=== PATIENT | female | born 1970 | race African-American/Black ===

== ENCOUNTER 2020-09-05 21:32 | Emergency (ER) | payer OTHER ==
[~2020-09-05 21:32] MED LIST: ARIXTRA10 MG/0.8 SC; ATARAX25 MG PO; BENTYL10 MG PO; BROMFED DM COU473 ML PO; COMPAZINE10 MG PO; DIAZEPAM 5MG TAB5 MG PO; DILANTIN100 MG PO; DIPHENHYDRAMINE IV; EPIPEN0.3 MG/0.3 SC; FOLIC ACID1 MG PO; HYDROCODONE-APA1 TAB PO; IBUPROFEN800 MG PO; KEFLEX250 MG PO; KETOROLAC TROME10 MG PO; LEVAQUIN750 MG PO; LEVIMIR SC; LIPITOR 10MG TA10 MG PO; LOVENOX100 MG/1 M SQ; MEDROL 4MG DOSEP4 MG PO; METHOTREXATE2.5 MG PO; NORCO 5-325 TA1 EACH PO; PEPCID AC20 MG PO; PHENERGAN25 M1 PO; POTASSIUM IV; PREDNISONE 10MG10 MG PO; PREDNISONE 20MG20 MG PO; PREDNISONE5 MG PO; PROAIR HFA8.5 GM INH; PROMETHAZINE25 MG/ML IV; PROTONIX 40MG T40 MG PO; PULMICORT0.5 MG/2 M NEB; TESSALON PERLE100 MG PO; TIZANIDINE HCL4 MG PO; ZPAK PO; [UNRECOGNIZED DRUG - REMARK]
[2020-09-05 21:58] LABS: BASOPHIL 0.5 % (0-2); EOSINOPHIL 1.7 % (0-5); HCT 45.9 % (37.0-47.0); HGB 14.4 g/dl (12.5-16.0); LYMPHOCYTE 31.8 % (15-48); MCH 28.5 pg (25.0-31.0); MCHC 31.4 g/dL (32.0-36.0); MCV 90.7 fL (78.0-100.0); MONOCYTE 5.7 % (0-12); MPV 9.6 fL (6.0-9.5); NRBC 0; PLT 444 K/uL (150-400); RBC 5.06 M/uL (4.20-5.40); RDW 13.9 % (11.5-14.0)
[2020-09-05 22:03] LABS: WBC 17.7 K/uL (4.0-10.5)
[2020-09-05 22:15] LABS: ALBUMIN 3.7 g/dL (3.4-5.0); ALKALINE PHOSHATASE 111 U/L (46-116); ALT 14 U/L (14-59); AST 8 U/L (15-37); BILIRUBIN - TOTAL 0.1 mg/dL (0.2-1.0); BUN 5 mg/dL (7-18); BUN/CREAT RATIO (CALC) 7.1 RATIO; CHLORIDE 102 mmol/L (98-107); CO2 (BICARBONATE) 29 mmol/L (21-32); GLOBULIN (CALCULATION) 4.5 g/dL; GLUCOSE 114 mg/dL (74-106); LIPASE 104 U/L (73-393); POTASSIUM 3.1 mmol/L (3.5-5.1); TOTAL PROTEIN 8.2 g/dL (6.4-8.2)
[2020-09-05 22:18] LABS: DILANTIN (PHENYTOIN) < 1.0 ug/mL (10.0-20.0); INR 1.05 (0.9-1.2); PTT 30.4 SECONDS (22.2-34.7)
[2020-09-05 22:29] LABS: CKMB <0.5 ng/mL (0.0-3.6)
[2020-09-06] MEDS ORDERED: LOVENOX100 MG/1 M SC (10:13)
== END 2020-09-06 10:55 | disposition home or self-care (01) ==
LOC: FER 21:32
PROVIDERS: Emergency Medicine Emergency Medical Services
DX: I26.99 Other pulmonary embolism without acute cor pulmonale (principal); U07.1 COVID-19; R07.89 Other chest pain; E11.9 Type 2 diabetes mellitus without complications; I10 Essential (primary) hypertension; J44.9 Chronic obstructive pulmonary disease, unspecified; F17.200 Nicotine dependence, unspecified, uncomplicated; Z79.4 Long term (current) use of insulin; Z86.73 Personal history of transient ischemic attack (TIA), and cerebral infarction without residual deficits; Z88.5 Allergy status to narcotic agent; Z88.8 Allergy status to other drugs, medicaments and biological substances; Z88.1 Allergy status to other antibiotic agents; Z91.041 Radiographic dye allergy status
CPT/HCPCS: 36415; 71045; 71275; 80053; 80185; 82553; 83690; 83880; 84145; 84484; 85025; 85379; 85610; 85730; 93005; J1170; J1200; J2060; J2550; J2930; J3480; J7030; J7050; M0239; Q0239; Q9967; U0002

== ENCOUNTER 2020-09-20 10:20 | Emergency (ER) | payer OTHER ==
[~2020-09-20 10:20] MED LIST changes: +LOVENOX100 MG/1 M SC
[2020-09-20 13:10] LABS: BASOPHIL 0.6 % (0-2); EOSINOPHIL 1.8 % (0-5); HCT 45.5 % (37.0-47.0); HGB 14.4 g/dl (12.5-16.0); LYMPHOCYTE 24.6 % (15-48); MCH 28.5 pg (25.0-31.0); MCHC 31.6 g/dL (32.0-36.0); MCV 89.9 fL (78.0-100.0); MONOCYTE 4.6 % (0-12); MPV 9.6 fL (6.0-9.5); NEUTROPHIL 68.1 % (41-80); NRBC 0; PLT 373 K/uL (150-400); RBC 5.06 M/uL (4.20-5.40); WBC 12.6 K/uL (4.0-10.5)
[2020-09-20 13:20] LABS: ALBUMIN 3.2 g/dL (3.4-5.0); BILIRUBIN - TOTAL 0.2 mg/dL (0.2-1.0); BUN/CREAT RATIO (CALC) 10.4 RATIO; C-REACTIVE PROTEIN 1.7 mg/dL (<=0.90); CREATININE 0.77 mg/dL (0.51-0.95); GLOBULIN (CALCULATION) 4.1 g/dL; POTASSIUM 3.6 mmol/L (3.5-5.1); TOTAL PROTEIN 7.3 g/dL (6.4-8.2)
[2020-09-20] MEDS ORDERED: PREDNISONE 20MG20 MG PO (14:04)
[2020-09-20] MEDS ORDERED: VIBRAMYCIN100 MG PO (14:04)
== END 2020-09-20 14:25 | disposition home or self-care (01) ==
LOC: FER 10:20
PROVIDERS: Emergency Medicine
DX: J44.1 Chronic obstructive pulmonary disease with (acute) exacerbation (principal); E11.9 Type 2 diabetes mellitus without complications; F17.210 Nicotine dependence, cigarettes, uncomplicated; Z86.711 Personal history of pulmonary embolism; Z88.1 Allergy status to other antibiotic agents; Z88.5 Allergy status to narcotic agent; Z88.8 Allergy status to other drugs, medicaments and biological substances
CPT/HCPCS: 36415; 71250; 80053; 83605; 85025; 86140; 94640; 94664; J2930; J7030

== ENCOUNTER 2020-09-28 18:26 | Emergency (ER) | payer OTHER ==
[~2020-09-28 18:26] MED LIST changes: +VIBRAMYCIN100 MG PO
== END 2020-09-28 21:46 | disposition home or self-care (01) ==
LOC: FER 18:26
DX: T18.128A Food in esophagus causing other injury, initial encounter (principal); E10.43 Type 1 diabetes mellitus with diabetic autonomic (poly)neuropathy; K31.84 Gastroparesis; Z86.711 Personal history of pulmonary embolism; Z88.1 Allergy status to other antibiotic agents; Z88.8 Allergy status to other drugs, medicaments and biological substances; Z88.5 Allergy status to narcotic agent; Z91.013 Allergy to seafood
CPT/HCPCS: 71045; 96372; J1170; J1610; J2550

== ENCOUNTER 2021-01-10 23:07 | Emergency (ER) | payer OTHER ==
[2021-01-11 01:55] LABS: BASOPHIL 0.7 % (0-2); EOSINOPHIL 2.7 % (0-5); HCT 40.5 % (37.0-47.0); HGB 13.4 g/dl (12.5-16.0); LYMPHOCYTE 33.5 % (15-48); MCH 29.1 pg (25.0-31.0); MCHC 33.1 g/dL (32.0-36.0); MCV 87.9 fL (78.0-100.0); MONOCYTE 6.2 % (0-12); MPV 10.2 fL (6.0-9.5); NEUTROPHIL 56.6 % (41-80); NRBC 0; PLT 261 K/uL (150-400); RBC 4.61 M/uL (4.20-5.40); RDW 12.9 % (11.5-14.0); WBC 11.1 K/uL (4.0-10.5)
[2021-01-11 02:09] LABS: MONOSPOT (MONONUCLEOSIS) NEGATIVE (NEGATIVE)
[2021-01-11 02:18] LABS: BUN/CREAT RATIO (CALC) 8.7 RATIO; CREATININE 0.69 mg/dL (0.51-0.95); POTASSIUM 3.5 mmol/L (3.5-5.1)
[2021-01-11] MEDS ORDERED: BROMFED DM COU473 ML PO (03:24)
[2021-01-11] MEDS ORDERED: PREDNISONE 20MG20 MG PO (03:24)
== END 2021-01-11 03:38 | disposition home or self-care (01) ==
LOC: FER 23:07
PROVIDERS: Emergency Medicine Emergency Medical Services
DX: J20.9 Acute bronchitis, unspecified (principal); J06.9 Acute upper respiratory infection, unspecified; E11.43 Type 2 diabetes mellitus with diabetic autonomic (poly)neuropathy; K31.84 Gastroparesis; F17.210 Nicotine dependence, cigarettes, uncomplicated; Z87.19 Personal history of other diseases of the digestive system; Z86.711 Personal history of pulmonary embolism; Z86.718 Personal history of other venous thrombosis and embolism; Z88.1 Allergy status to other antibiotic agents; Z88.5 Allergy status to narcotic agent; Z88.8 Allergy status to other drugs, medicaments and biological substances; Z91.041 Radiographic dye allergy status; Z79.4 Long term (current) use of insulin
CPT/HCPCS: 36415; 70360; 71046; 80048; 85025; 86308; 87880; 94664; J7512

== ENCOUNTER 2021-02-12 04:05 | Emergency (ER) | payer OTHER ==
[2021-02-12 05:55] LABS: BASOPHIL 0.1 % (0-2); EOSINOPHIL 0 % (0-5); HCT 42.2 % (37.0-47.0); HGB 13.6 g/dl (12.5-16.0); LYMPHOCYTE 9.4 % (15-48); MCH 28.8 pg (25.0-31.0); MCHC 32.2 g/dL (32.0-36.0); MCV 89.2 fL (78.0-100.0); MONOCYTE 2.4 % (0-12); MPV 9.8 fL (6.0-9.5); NEUTROPHIL 87.6 % (41-80); NRBC 0; PLT 401 K/uL (150-400); RBC 4.73 M/uL (4.20-5.40); RDW 13.2 % (11.5-14.0); WBC 18.9 K/uL (4.0-10.5)
[2021-02-12 06:00] LABS: INR 1.1 (0.9-1.2); PROTHROMBIN TIME 13.5 SECONDS (11.4-13.6); PTT 28.7 SECONDS (22.2-34.7)
[2021-02-12 06:06] LABS: BUN/CREAT RATIO (CALC) 13.3 RATIO; C-REACTIVE PROTEIN 0.4 mg/dL (<=0.90); CREATININE 0.6 mg/dL (0.51-0.95); POTASSIUM 4.2 mmol/L (3.5-5.1); URIC ACID 4.5 mg/dL (2.6-6.2)
[2021-02-12 06:15] LABS: D-DIMER 9.35 ug/mLFEU (0.00-0.41)
[2021-02-12] MEDS ORDERED: VOLTAREN ARTHRI20 GM TOP (08:21)
== END 2021-02-12 08:45 | disposition home or self-care (01) ==
LOC: FER 04:05
PROVIDERS: Emergency Medicine Emergency Medical Services
DX: M79.661 Pain in right lower leg (principal); M25.561 Pain in right knee; E11.43 Type 2 diabetes mellitus with diabetic autonomic (poly)neuropathy; K31.84 Gastroparesis; I10 Essential (primary) hypertension; F17.210 Nicotine dependence, cigarettes, uncomplicated; Z86.718 Personal history of other venous thrombosis and embolism; Z86.711 Personal history of pulmonary embolism; Z88.5 Allergy status to narcotic agent; Z88.8 Allergy status to other drugs, medicaments and biological substances
CPT/HCPCS: 36415; 73560; 80048; 84550; 85025; 85379; 85610; 85730; 86140; 93971; 96372; J1170; J1885; J2550

== ENCOUNTER 2021-04-13 06:12 | Emergency (ER) | payer OTHER ==
[~2021-04-13 06:12] MED LIST changes: +VOLTAREN ARTHRI20 GM TOP
== END 2021-04-13 09:32 | disposition home or self-care (01) ==
LOC: FER 06:12
DX: S80.01XA Contusion of right knee, initial encounter (principal); F17.210 Nicotine dependence, cigarettes, uncomplicated; E11.9 Type 2 diabetes mellitus without complications; Z98.890 Other specified postprocedural states; Z86.711 Personal history of pulmonary embolism; Z88.5 Allergy status to narcotic agent; Z88.1 Allergy status to other antibiotic agents; Z88.8 Allergy status to other drugs, medicaments and biological substances; W06.XXXA Fall from bed, initial encounter; Y92.009 Unspecified place in unspecified non-institutional (private) residence as the place of occurrence of the external cause
CPT/HCPCS: 73590; 96372; J1170; J2550

== ENCOUNTER 2021-04-24 00:33 | Emergency (ER) | payer OTHER ==
[2021-04-24] MEDS ORDERED: CEFDINIR300 MG PO (04:14)
== END 2021-04-24 04:18 | disposition home or self-care (01) ==
LOC: FER 00:33
DX: S70.01XA Contusion of right hip, initial encounter (principal); S30.0XXA Contusion of lower back and pelvis, initial encounter; M79.651 Pain in right thigh; E11.9 Type 2 diabetes mellitus without complications; F17.200 Nicotine dependence, unspecified, uncomplicated; Z88.5 Allergy status to narcotic agent; Z88.1 Allergy status to other antibiotic agents; Z88.8 Allergy status to other drugs, medicaments and biological substances; Z91.030 Bee allergy status; Z79.4 Long term (current) use of insulin; Z79.899 Other long term (current) drug therapy; W19.XXXA Unspecified fall, initial encounter; Y92.009 Unspecified place in unspecified non-institutional (private) residence as the place of occurrence of the external cause
CPT/HCPCS: 72170; 72220; 73130; 73502; 73552; 96372; J1170; J2550

== ENCOUNTER 2021-10-13 21:18 | Emergency (ER) | payer OTHER ==
[~2021-10-13 21:18] MED LIST changes: +CEFDINIR300 MG PO
[2021-10-13 22:03] LABS: BASOPHIL 0.3 % (0-2); EOSINOPHIL 2.3 % (0-5); HCT 41.4 % (37.0-47.0); HGB 13.5 g/dl (12.5-16.0); LYMPHOCYTE 21.4 % (15-48); MCH 28.8 pg (25.0-31.0); MCHC 32.6 g/dL (32.0-36.0); MCV 88.3 fL (78.0-100.0); MONOCYTE 4.9 % (0-12); MPV 9.2 fL (6.0-9.5); NEUTROPHIL 70.8 % (41-80); NRBC 0; PLT 300 K/uL (150-400); RBC 4.69 M/uL (4.20-5.40); RDW 13.2 % (11.5-14.0); WBC 14.6 K/uL (4.0-10.5)
[2021-10-13 22:14] LABS: INR 1.04 (0.9-1.2); PTT 28.8 SECONDS (24.4-34.7)
[2021-10-13 22:20] LABS: BUN/CREAT RATIO (CALC) 15.4 RATIO; CREATININE 0.65 mg/dL (0.51-0.95); POTASSIUM 3.9 mmol/L (3.5-5.1)
[2021-10-13 22:29] LABS: D-DIMER 4.32 ug/mLFEU (0.00-0.41)
[2021-10-13 23:40] LABS: CORONAVIRUS 2019 SARS-COV-2 NEGATIVE (NEGATIVE); INFLUENZA A NAA NEGATIVE (NEGATIVE)
[2021-10-14] MEDS ORDERED: VIBRAMYCIN100 MG PO (05:44)
[2021-10-14] MEDS ORDERED: SYMBICORT 16010.2 GM INH (05:44)
[2021-10-14] MEDS ORDERED: VENTOLIN HFA IN18 GM INH (05:44)
[2021-10-14] MEDS ORDERED: PREDNISONE 20MG20 MG PO (05:44)
== END 2021-10-14 06:10 | disposition home or self-care (01) ==
LOC: FER 21:18
PROVIDERS: Internal Medicine
DX: J44.1 Chronic obstructive pulmonary disease with (acute) exacerbation (principal); E10.9 Type 1 diabetes mellitus without complications; R21 Rash and other nonspecific skin eruption; F17.210 Nicotine dependence, cigarettes, uncomplicated; Z20.822 Contact with and (suspected) exposure to COVID-19; Z86.711 Personal history of pulmonary embolism; Z86.718 Personal history of other venous thrombosis and embolism; Z79.01 Long term (current) use of anticoagulants
CPT/HCPCS: 36415; 71275; 80048; 83880; 84145; 84484; 85025; 85379; 85610; 85730; 93005; 93971; J1170; J1200; J2405; J2920; Q9967; U0002

== ENCOUNTER 2021-11-16 10:17 | Inpatient (IN) | payer OTHER ==
[~2021-11-16] VITALS: Ht 170.2 cm; Wt 98.1 kg
[~2021-11-16 10:17] MED LIST changes: +SYMBICORT 16010.2 GM INH; +VENTOLIN HFA IN18 GM INH
[2021-11-16 10:49] LABS: BASOPHIL 0.4 % (0-2); EOSINOPHIL 0 % (0-5); HCT 45.1 % (37.0-47.0); HGB 14.2 g/dl (12.5-16.0); LYMPHOCYTE 9.6 % (15-48); MCH 28.4 pg (25.0-31.0); MCHC 31.5 g/dL (32.0-36.0); MCV 90.2 fL (78.0-100.0); MONOCYTE 5.2 % (0-12); MPV 9.4 fL (6.0-9.5); NEUTROPHIL 84.3 % (41-80); NRBC 0; PLT 322 K/uL (150-400); RDW 13.3 % (11.5-14.0); WBC 18.9 K/uL (4.0-10.5)
[2021-11-16 11:10] LABS: ALBUMIN 3.7 g/dL (3.4-5.0); BILIRUBIN - TOTAL 0.4 mg/dL (0.2-1.0); BUN/CREAT RATIO (CALC) 10.6 RATIO; CREATININE 0.66 mg/dL (0.51-0.95); GLOBULIN (CALCULATION) 5.2 g/dL; POTASSIUM 3.9 mmol/L (3.5-5.1); TOTAL PROTEIN 8.9 g/dL (6.4-8.2)
[2021-11-16 11:15] LABS: LACTIC ACID 1.8 mmol/L (0.4-1.9)
[2021-11-16 11:48] LABS: CORONAVIRUS 2019 SARS-COV-2 NEGATIVE (NEGATIVE); INFLUENZA A NAA NEGATIVE (NEGATIVE)
[2021-11-17 06:51] LABS: BASOPHIL 0.2 % (0-2); EOSINOPHIL 0 % (0-5); HCT 38.1 % (37.0-47.0); HGB 12.6 g/dl (12.5-16.0); LYMPHOCYTE 5.3 % (15-48); MCHC 33.1 g/dL (32.0-36.0); MCV 87.6 fL (78.0-100.0); MPV 9.5 fL (6.0-9.5); NRBC 0; PLT 297 K/uL (150-400); RBC 4.35 M/uL (4.20-5.40); RDW 13.6 % (11.5-14.0); WBC 19.7 K/uL (4.0-10.5)
[2021-11-17 06:53] LABS: NEUTROPHIL 91.7 % (41-80)
[2021-11-17 07:17] LABS: BUN 10 mg/dL (7-18); BUN/CREAT RATIO (CALC) 15.6 RATIO; C-REACTIVE PROTEIN > 18.00 mg/dL (<=0.90); CHLORIDE 103 mmol/L (98-107); CO2 (BICARBONATE) 25 mmol/L (21-32); CREATININE 0.64 mg/dL (0.51-0.95); GLUCOSE 269 mg/dL (74-106); POTASSIUM 3.5 mmol/L (3.5-5.1)
[2021-11-17 19:50] LABS: CORONAVIRUS 229E NOT DETECTED (NOT DETECT); CORONAVIRUS HKU1 NOT DETECTED (NOT DETECT); CORONAVIRUS NL63 NOT DETECTED (NOT DETECT); CORONAVIRUS OC43 NOT DETECTED (NOT DETECT); HUMAN METAPNEUMO NOT DETECTED (NOT DETECT)
[2021-11-17 19:51] LABS: B. PERTUSSIS DNA NOT DETECTED (NOT DETECT); CHLAMYDOPHILA PNEUMON DNA PCR NOT DETECTED (NOT DETECT); CORONAVIRUS 2019 PCR NOT DETECTED (NOT DETECTD); INFLUENZA A NOT DETECTED (NOT DETECT); INFLUENZA A 2009 H1N1 NOT DETECTED (NOT DETECT); INFLUENZA A H1 NOT DETECTED (NOT DETECT); INFLUENZA A H3 NOT DETECTED (NOT DETECT); INFLUENZA B NOT DETECTED (NOT DETECT); MYCOPLASMA PNEUMONIAE NOT DETECTED (NOT DETECT); PARAINFLUENZA 1 NOT DETECTED (NOT DETECT); PARAINFLUENZA 2 NOT DETECTED (NOT DETECT); PARAINFLUENZA 3 NOT DETETED (NOT DETECT); PARAINFLUENZA 4 NOT DETECTED (NOT DETECT); RESPIRATORY SYNCYTIAL VIRUS NOT DETECTED (NOT DETECT)
[2021-11-18 06:11] LABS: BASOPHIL 0.1 % (0-2); EOSINOPHIL 0 % (0-5); HCT 37.4 % (37.0-47.0); HGB 12.1 g/dl (12.5-16.0); LYMPHOCYTE 3.3 % (15-48); MCH 28.5 pg (25.0-31.0); MCHC 32.4 g/dL (32.0-36.0); MCV 88.2 fL (78.0-100.0); MONOCYTE 2.1 % (0-12); MPV 9.9 fL (6.0-9.5); NRBC 0; PLT 297 K/uL (150-400); RBC 4.24 M/uL (4.20-5.40); RDW 13.7 % (11.5-14.0); WBC 25.6 K/uL (4.0-10.5)
[2021-11-18 06:22] LABS: NEUTROPHIL 93.3 % (41-80)
[2021-11-18 06:37] LABS: ALBUMIN 2.9 g/dL (3.4-5.0); BILIRUBIN - TOTAL 0.2 mg/dL (0.2-1.0); BUN/CREAT RATIO (CALC) 14.9 RATIO; C-REACTIVE PROTEIN 4.5 mg/dL (<=0.90); CREATININE 0.67 mg/dL (0.51-0.95); GLOBULIN (CALCULATION) 3.8 g/dL; POTASSIUM 3.6 mmol/L (3.5-5.1)
[2021-11-18 06:38] LABS: TOTAL PROTEIN 6.7 g/dL (6.4-8.2)
--- NOTE | 2021-11-18 19:58 | NUR ---
1899 BEDSIDE REPORT PERFORMED WITH DAY SHIFT RN, PT TEARFUL STATES IS "CONFUSED" CONCERNING DIAGNOSIS AND DOESNT UNDERSTAND WHY DID NOT RECIEVE IVIG STATES DAYSHIFT MD WALKED OUT OF ROOM TO ANSWER PHONE AND NEVER CAME BACK TO EXPLAIN DIAGNOSIS. THIS NURSE READ PT PROGRESS NOTES FOR TODAY AND EXPLAINED DIAGNOSIS/TREATMENT. PT VERBALIZED UNDERSTANDING. PT REQUESTED BENDADRYL FOR SLEEP, NOTIFIED CREDIT ANALYST, ORDERS PLACED. 1914 THIS NURSE PEFORMED QSHIFT ASSESSMENT, UPDATED PT THAT BENADRYL HAS BEEN ORDERED AND WILL BRING WITH SCHEDULED EVENING MEDICATIONS. PT AGREED, STATED FEELING PAIN TO BACK AND RIBS. NURSE INFORMED PT WAS DUE FOR PERCOCET AT 1999 AND WOULD BRING IT IN AT THIS TIME. PT UNDERSTOOD. 1939 PT CALLED OUT STATING IV BEEPING, NOTIFIED WOULD BE IN ROOM IN A FEW MINUTES 1945 AIDE NOTIFIED NURSE PT IS TEARFUL, AGITATED D/T NO ONE ANSWERING CALL LIGHT, STATES PULSE OX NOT WORKING, PT REPORTS FALLING OUT OF BED (UNWITNESSED) AIDE STATES PT WAS IN BED, REQUESTS TO SPEAK TO MANAGEMENT. 1951 NURSE SOFTWARE PROGRAM MANAGER AT BEDSIDE, KYRA HAMMONDS NOTIFIED OF UNWITNESSED FALL. NASRA EVALUATED PT AT BEDSIDE.
--- NOTE | 2021-11-18 23:21 | NUR ---
2014 NURSE BUGGY DRIVER INFORMED PT STATED THAT SHE WOULD TAKE ALL MEDICATIONS INCLUDING PRN PERCOCET AT THE SAME TIME 2099. 2045 PT INFORMED FINAL EXPENSE AGENT THAT WANTED IVS OUT AND TO LEAVE. MD INFORMED AT BEDSIDE TO EDUCATED PT ON RISKS OF LEAVING AT THIS TIME. NURSE AT BEDSIDE TO GIVE SCHEDULED NIGHTLY AND PRN MEDICATIONS. PT STATES "YOU HAVE BEEN AVOIDING COMING IN THIS ROOM, WHEN YOU SHOWED ME THE PIECE OF PAPER (REFERING TO MD PROGRESS NOTES) YOU SPOKE TO ME LIKE I WAS A CHILD" PT STATES "YOU ALL HAVE ME FLAGGED TROUBLE" THIS NURSE APOLOGIZED STATING THAT WAS NOT THE INTENTION, THIS NURSE WANTED TO HELP PT BE FULLY INFORMED. REASSURED PT THAT THE HOSPITAL AND STAFF DO NOT HAVE HER FLAGGED IN ANY WAY THIS NURSE OFFERED TO CHANGE ASSIGNMENTS IF PT FELT MORE COMFORTABLE WITH DIFFERENT RN PROVIDING CARE. PT DENIED NEED FOR REASSIGMENT. CONVERSATION OBSERVED BY NURSE BUGGY DRIVER. PT EDUCATED ON ALL MEDICATIONS GIVEN. NEXT DOSE FOR PAIN MEDICATION WRITTEN ON WHITE BOARD. PT DISCONNECTED FROM COMPLETED AZITHROMYCIN, FLUSHED, AND CAPED. BED ALARM ACTIVATED AND PT INSTRUCTED TO CALL PRIOR TO AMBULATING. PT VERBALIZED UNDERSTANDING
[2021-11-19 05:31] LABS: BASOPHIL 0.1 % (0-2); EOSINOPHIL 0 % (0-5); HGB 11.7 g/dl (12.5-16.0); LYMPHOCYTE 4.9 % (15-48); MCH 28.1 pg (25.0-31.0); MCHC 31.6 g/dL (32.0-36.0); MCV 88.9 fL (78.0-100.0); MONOCYTE 3.3 % (0-12); MPV 9.5 fL (6.0-9.5); NRBC 0; PLT 292 K/uL (150-400); RBC 4.16 M/uL (4.20-5.40); RDW 13.9 % (11.5-14.0); WBC 16.8 K/uL (4.0-10.5)
[2021-11-19 05:51] LABS: BUN/CREAT RATIO (CALC) 17.5 RATIO; C-REACTIVE PROTEIN 2.8 mg/dL (<=0.90); CREATININE 0.63 mg/dL (0.51-0.95); POTASSIUM 3.7 mmol/L (3.5-5.1)
--- NOTE | 2021-11-19 23:04 | NUR ---
0- UPON ENTERING ROOM TO GIVEN SCHEDULED AND REQUEST PRN MEDICATIONS PATIENT STATED "WHO IS MONITORING ME" I EXPLAINED THAT SHE WAS MONITORED VIA TELEMETRY PER ICU, SHE THEN PULLED HER TELEMETRY BOX FROM UNDER HER BED AND STATED "I THAT NOT NO ONE HAS MONITORED ME". "JUST LOOK I HAS NOT BEEN ON MY MONITOR OR HAD I HAD MY OXYGEN ON". I ATTEMPTED TO REASSURE HER THAT SHE WS MONITORED AND SHE NEEDED TO CALL FOR ASSISTANE WHEN NEEDED. SHE THEN STATED "NO ONE HAS CARED FOR ME YOU ALL DON'T LIKE BLACK PEOPLE THATS WHY YOU ARE NOT TAKING ARE OF ME YOU ARE PREJUDICE". I ASK IF SHE WOULD LIKE TO SPEAK TO THE PAPER BAG INSPECTOR SHE STATES "NO" "I WILL JUST GET UP AND GET OUT OF HERE". I OFFERED HER MEDICATIONS SHE STATED "I DON'T WANT ANYTHING FROM [facility]U". I THEN EXITED ROOM AND CONTACTED SUPERVISORS.
[2021-11-20 05:50] LABS: BASOPHIL 0.1 % (0-2); EOSINOPHIL 0 % (0-5); HCT 35.9 % (37.0-47.0); HGB 11.4 g/dl (12.5-16.0); MCH 28.6 pg (25.0-31.0); MCHC 31.8 g/dL (32.0-36.0); MONOCYTE 3.5 % (0-12); MPV 9.5 fL (6.0-9.5); NEUTROPHIL 86.6 % (41-80); NRBC 0; PLT 303 K/uL (150-400); RBC 3.99 M/uL (4.20-5.40); WBC 13.5 K/uL (4.0-10.5)
[2021-11-20 07:00] LABS: IRON % SATURATION 22.7 %SAT (20-50)
[2021-11-20 07:41] LABS: BUN/CREAT RATIO (CALC) 21.3 RATIO; CREATININE 0.61 mg/dL (0.51-0.95); POTASSIUM 3.8 mmol/L (3.5-5.1)
--- NOTE | 2021-11-20 09:32 | NUR ---
DURING BEDSIDE REPORT KENIA WAS SLEEPING AND DID NOT AROUSE. I WENT INTO THE ROOM TO DO MY ASSESSMENT AND PATIENT WAS VERY PLEASANT ANT COOPERATIVE. I ASKED PATIENT IF SHE FELT BETTER THAN YESTERDAY AND SHE SAID YES BUT THAT HER O2 LEVEL WERE LOWERING ALL NIGHT. SHE HAD NO QUESTIONS FOR ME.
[2021-11-20] MEDS ORDERED: DUONEB 2.5-0.5M1 AMP NEB (10:06)
[2021-11-20] MEDS ORDERED: PREDNISONE 20MG20 MG PO (10:06)
== END 2021-11-20 10:29 | disposition home or self-care (01) | DRG 545 ==
LOC: FER 10:17 → FMS 16:59
PROVIDERS: Emergency Medicine; Family Medicine; ADMIT Allergy & Immunology Allergy
DX: M32.13 Lung involvement in systemic lupus erythematosus (principal); J96.01 Acute respiratory failure with hypoxia; J12.89 Other viral pneumonia; J44.1 Chronic obstructive pulmonary disease with (acute) exacerbation; J44.0 Chronic obstructive pulmonary disease with (acute) lower respiratory infection; Z20.822 Contact with and (suspected) exposure to COVID-19; E11.40 Type 2 diabetes mellitus with diabetic neuropathy, unspecified; B97.10 Unspecified enterovirus as the cause of diseases classified elsewhere; M06.9 Rheumatoid arthritis, unspecified; D64.9 Anemia, unspecified; I10 Essential (primary) hypertension; K21.9 Gastro-esophageal reflux disease without esophagitis; G40.909 Epilepsy, unspecified, not intractable, without status epilepticus; E11.43 Type 2 diabetes mellitus with diabetic autonomic (poly)neuropathy; F41.9 Anxiety disorder, unspecified; F32.A Depression, unspecified; E78.5 Hyperlipidemia, unspecified; E11.65 Type 2 diabetes mellitus with hyperglycemia; T38.0X5A Adverse effect of glucocorticoids and synthetic analogues, initial encounter; Z96.631 Presence of right artificial wrist joint; Z86.711 Personal history of pulmonary embolism; Z85.42 Personal history of malignant neoplasm of other parts of uterus; I69.341 Monoplegia of lower limb following cerebral infarction affecting right dominant side; Z90.49 Acquired absence of other specified parts of digestive tract; Z90.710 Acquired absence of both cervix and uterus; Z88.1 Allergy status to other antibiotic agents; Z88.5 Allergy status to narcotic agent; Z91.013 Allergy to seafood
CPT/HCPCS: 36415; 70450; 70486; 71045; 71046; 71275; 80048; 80053; 82607; 83540; 83550; 83605; 83880; 84145; 84484; 85025; 85379; 86140; 87040; 93005; 94010; 94640; 94667; 94668; A4216; J0456; J0696; J1200; J1650; J1815; J1885; J2543; J2550; J2930; J3030; J7030; J7050; J7120; Q9967; U0002

== ENCOUNTER 2022-01-10 23:23 | Emergency (ER) | payer OTHER ==
[~2022-01-10 23:23] MED LIST changes: +DUONEB 2.5-0.5M1 AMP NEB
[2022-01-10 23:54] LABS: BASOPHIL 0.6 % (0-2); EOSINOPHIL 3.9 % (0-5); HCT 43.6 % (37.0-47.0); HGB 13.8 g/dl (12.5-16.0); LYMPHOCYTE 31.3 % (15-48); MCH 28.6 pg (25.0-31.0); MCHC 31.7 g/dL (32.0-36.0); MCV 90.5 fL (78.0-100.0); MPV 9.6 fL (6.0-9.5); NEUTROPHIL 57.9 % (41-80); NRBC 0; PLT 313 K/uL (150-400); RBC 4.82 M/uL (4.20-5.40); RDW 13.3 % (11.5-14.0); WBC 11.7 K/uL (4.0-10.5)
[2022-01-11 00:09] LABS: ALBUMIN 3.5 g/dL (3.4-5.0); BILIRUBIN - TOTAL 0.2 mg/dL (0.2-1.0); BUN/CREAT RATIO (CALC) 16.5 RATIO; CREATININE 0.79 mg/dL (0.51-0.95); GLOBULIN (CALCULATION) 3.8 g/dL; POTASSIUM 4.1 mmol/L (3.5-5.1); TOTAL PROTEIN 7.3 g/dL (6.4-8.2)
[2022-01-11] MEDS ORDERED: MEDROL 4MG DOSEP4 MG PO (04:45)
== END 2022-01-11 03:10 | disposition home or self-care (01) ==
LOC: FER 23:23
PROVIDERS: Emergency Medicine
DX: S00.12XA Contusion of left eyelid and periocular area, initial encounter (principal); S00.11XA Contusion of right eyelid and periocular area, initial encounter; S05.02XA Injury of conjunctiva and corneal abrasion without foreign body, left eye, initial encounter; H57.89 Other specified disorders of eye and adnexa; J44.1 Chronic obstructive pulmonary disease with (acute) exacerbation; E11.9 Type 2 diabetes mellitus without complications; F17.200 Nicotine dependence, unspecified, uncomplicated; Z88.6 Allergy status to analgesic agent; Z88.8 Allergy status to other drugs, medicaments and biological substances; Z88.1 Allergy status to other antibiotic agents; Z91.013 Allergy to seafood
CPT/HCPCS: 36415; 71045; 80053; 84484; 85025; 93005; 94640; J2930

== ENCOUNTER 2022-03-09 20:48 | Emergency (ER) | payer OTHER ==
[2022-03-09 22:24] LABS: BASOPHIL 0.6 % (0-2); HGB 13.3 g/dl (12.5-16.0); LYMPHOCYTE 32.7 % (15-48); MCH 28.5 pg (25.0-31.0); MCHC 32.4 g/dL (32.0-36.0); MCV 87.8 fL (78.0-100.0); MONOCYTE 6.8 % (0-12); MPV 9.8 fL (6.0-9.5); NEUTROPHIL 56.7 % (41-80); NRBC 0; PLT 300 K/uL (150-400); RBC 4.67 M/uL (4.20-5.40); WBC 11.1 K/uL (4.0-10.5)
[2022-03-09 22:32] LABS: BILIRUBIN NEGATIVE (NEGATIVE); BLOOD 1+ Ery/uL (NEGATIVE); CLARITY CLEAR (CLEAR); COLOR YELLOW (YELLOW); GLUCOSE (U) NORMAL (NORMAL); LEUKOCYTES TRACE Leu/uL (NEGATIVE); NITRITE NEGATIVE (NEGATIVE); PROTEIN NEGATIVE (NEGATIVE); SPECIFIC GRAVITY <=1.005 (1.001-1.030); UROBILINOGEN 0.2 mg/dL (0.2-1.0)
[2022-03-09 22:33] LABS: INR 1.01 (0.9-1.2); PTT 25.2 SECONDS (24.9-34.6)
[2022-03-09 22:40] LABS: ALBUMIN 3.2 g/dL (3.4-5.0); BILIRUBIN - TOTAL 0.2 mg/dL (0.2-1.0); BUN/CREAT RATIO (CALC) 9.8 RATIO; CREATININE 0.61 mg/dL (0.51-0.95); GLOBULIN (CALCULATION) 3.7 g/dL; MAGNESIUM 1.9 mg/dL (1.8-2.4); POTASSIUM 3.9 mmol/L (3.5-5.1); TOTAL PROTEIN 6.9 g/dL (6.4-8.2)
[2022-03-09] MEDS ORDERED: BENTYL10 MG PO (22:52)
[2022-03-09] MEDS ORDERED: NORCO 5-325 TA1 EACH PO (22:52)
[2022-03-09 23:35] LABS: CORONAVIRUS 2019 SARS-COV-2 NEGATIVE (NEGATIVE); INFLUENZA A NAA NEGATIVE (NEGATIVE)
== END 2022-03-10 00:08 | disposition home or self-care (01) ==
LOC: FER 20:48
PROVIDERS: Internal Medicine
DX: K58.9 Irritable bowel syndrome, unspecified (principal); E11.9 Type 2 diabetes mellitus without complications; I10 Essential (primary) hypertension; J44.9 Chronic obstructive pulmonary disease, unspecified; F17.210 Nicotine dependence, cigarettes, uncomplicated; Z20.822 Contact with and (suspected) exposure to COVID-19; Z88.1 Allergy status to other antibiotic agents; Z88.5 Allergy status to narcotic agent; Z88.8 Allergy status to other drugs, medicaments and biological substances
CPT/HCPCS: 36415; 71250; 80053; 81001; 83605; 83690; 83735; 84145; 85025; 85610; 85730; 87040; J1170; J2550; U0002

== ENCOUNTER → 2022-04-11 | Day surgery (SDC) | payer OTHER ==
[~2022-04-11] VITALS: Ht 170.2 cm; Wt 98.1 kg
== END | disposition home or self-care (01) ==
LOC: FAS 10:12
DX: K92.1 Melena (principal); K62.1 Rectal polyp; K58.9 Irritable bowel syndrome, unspecified; J44.9 Chronic obstructive pulmonary disease, unspecified; E11.9 Type 2 diabetes mellitus without complications; I11.0 Hypertensive heart disease with heart failure; I50.9 Heart failure, unspecified; E66.9 Obesity, unspecified; E78.00 Pure hypercholesterolemia, unspecified; Z86.16 Personal history of COVID-19; Z88.8 Allergy status to other drugs, medicaments and biological substances; Z88.1 Allergy status to other antibiotic agents; Z88.5 Allergy status to narcotic agent; Z91.013 Allergy to seafood; Z85.41 Personal history of malignant neoplasm of cervix uteri; Z86.73 Personal history of transient ischemic attack (TIA), and cerebral infarction without residual deficits; Z72.0 Tobacco use; Z68.33 Body mass index [BMI] 33.0-33.9, adult
CPT/HCPCS: J2550; J2704; J7120